=== PATIENT | female | born 1940 | race Caucasian/White ===

== ENCOUNTER 2021-06-03 08:02 | Day surgery (SDC) | payer MEDICARE ==
[2021-05-28 14:29] LABS: BASOPHILS % (AUTO) 0.5 % (0-1); EOSINOPHILS # (AUTO) 0.1 X10'3 (0-0.9); LYMPHOCYTES # (AUTO) 1.1 X10'3 (1.1-4.8); MEAN PLATELET VOLUME 10.2 FL (7.4-10.4); MONOCYTES # (AUTO) 0.5 X10'3 (0-0.9)
[2021-05-28 14:30] LABS: ALBUMIN 3.8 G/DL (3.4-5.0); ALKALINE PHOSPHATASE 57 IU/L (46-116); BLOOD UREA NITROGEN 36 MG/DL (7-18); BUN/CREATININE RATIO 12.7 (6.6-38.0); CALCIUM 8.4 MG/DL (8.5-10.1); CHLORIDE 104 MMOL/L (99-107); CREATININE 2.84 MG/DL (0.40-0.90); PRE OP ALT 19 U/L (30-65); PRE OP ANION GAP 14 (8-16); PRE OP AST 14 U/L (10-37); PRE OP BILIRUB, TOTAL 0.3 MG/DL (0.0-1.0); PRE OP GLUCOSE 100 MG/DL (70-104); PRE OP SODIUM 138 MMOL/L (135-145); TOTAL CARBON DIOXIDE 20.2 MMOL/L (24-32); TOTAL PROTEIN 7.7 G/DL (6.4-8.2); eGFR 16 ML/MIN
[2021-05-28 14:31] LABS: EOSINOPHILS % (AUTO) 1.4 % (0-6); LYMPHOCYTES % (AUTO) 15.8 % (21-51); MEAN CORPUSCULAR HEMOGLOBIN 27.9 PG (27.0-31.0); MEAN CORPUSCULAR HGB CONC 32.6 g/dL (33.0-36.5); MEAN CORPUSCULAR VOLUME 85.7 FL (78-98); MONOCYTES % (AUTO) 7.3 % (2-12); NEUTROPHILS # (AUTO) 5.4 X10'3 (1.8-7.7); PRE OP HEMATOCRIT 38.7 % (35.0-45.0); PRE OP HEMOGLOBIN 12.6 g/dL (12.0-16.0); PRE OP PLATELET COUNT 206 X10'3 (140-440); RED BLOOD COUNT 4.51 X10'6 (4.20-5.60); RED CELL DISTRIBUTION WIDTH 15.6 % (11.5-14.5)
[2021-05-28 15:26] LABS: ELLIPTOCYTES FEW; PLATELET ESTIMATE NORMAL
[2021-05-28 15:27] LABS: LARGE PLATELETS FEW
[~2021-06-03] VITALS: Ht 162.6 cm; Wt 54.4 kg
[2021-06-03] VITALS (10 sets, daily range): BP systolic 128–157; BP diastolic 68–84
[~2021-06-03 08:02] MED LIST: ALLO100T25 PO; ALPR-623 PO; AMLO5TAB PO; ATEN25TA PO; CLON-529 PO; DOCUMENT DATE & TIME OF BETA-BLOCKER PO ONE; ceFAZolin 2gm in dextrose, iso 50 ML IV ONE; famotidine 20mg tablet PO ONE; ringers solution, lacted 1,000 ML IV SCH
[2021-06-03] MEDS ORDERED: BUPIVAcaine/PF 2.5 mg/ml (0.25%) 30ml vial ONE ×2 (09:46→09:59)
[2021-06-03] MEDS ORDERED: LIDOcaine 1% 30ml preserv. free vial ONE ×2 (09:46→09:59)
[2021-06-03] MEDS ORDERED: labetalol 20mg/4ml (5mg/ml) syringe IV PRN (10:00)
[2021-06-03] MEDS ORDERED: hydrALAZINE 20mg/ml inj. IV PRN (10:00)
[2021-06-03] MEDS ORDERED: fentaNYL/PF 50MCG/1 ML 2ML syringe IV PRN ×2 (10:00)
[2021-06-03] MEDS ORDERED: ringers solution, lacted 1,000 ML IV SCH (10:00)
[2021-06-03] MEDS ORDERED: morphine 4 MG/ML inj SYRINge IV PRN (10:00)
[2021-06-03] MEDS ORDERED: morphine 2 MG/ML inj. syringe IV PRN (10:00)
[2021-06-03] MEDS ORDERED: ondansetron/PF 4mg/2ml inj IV PRN (10:00)
[2021-06-03] MEDS ORDERED: glycopyrrolate 0.2mg/ml inj ONE (10:23)
[2021-06-03] MEDS ORDERED: dexamethasone sod phosphate 10mg/ml inj ONE (10:23)
[2021-06-03] MEDS ORDERED: neostigmine methylsulfate 1 MG/ML 10ml vial ONE (10:23)
[2021-06-03] MEDS ORDERED: sevoflurane 250ml liquid IH ONE (10:23)
[2021-06-03] MEDS ORDERED: rocuronium 10mg/ml inj IV ONE (10:33)
[2021-06-03] MEDS ORDERED: fentaNYL/PF 50MCG/1 ML 2ML syringe ONE (10:33)
[2021-06-03] MEDS ORDERED: midazolam 1 mg/ML 2ml injection ONE (10:33)
[2021-06-03] MEDS ORDERED: propofol inj 20 ML IV ONE (10:34)
[2021-06-03] MEDS ORDERED: LIDOcaine 2% (20mg/ml) 5ml vial ONE (10:34)
[2021-06-03] MEDS ORDERED: ondansetron/PF 4mg/2ml inj ONE (10:37)
--- NOTE | 2021-06-03 11:42 | NUR ---
Received from OR via , accompanied by Anesthesiologist DR LEIVA and report given by Anesthesiolgist. PT PRESENTS WITH 20G RIGHT HAND, ABD DRESSING DRY AND INTACT. VSS Addendum: 06/03/21 at 1157 by Yessi Marshall RN, RN Amended: Links added.
[2021-06-03] MEDS ORDERED: HYDROcodone/acetaminophen 5mg/325mg tablet PO PRN (11:50)
--- NOTE | 2021-06-03 13:02 | NUR ---
DC INSTURCTIONS REVIEWED WITH PT, PT VERBALIZED UNDERSTANDING WITH NO FURTHER QUESTIONS AT THIS TIME. PT WHEELED OUT TO DAUGHTER'S PRIVATE VEHIVLE. VSS. Addendum: 06/03/21 at 1314 by Yessi Marshall RN, RN Amended: Links added.
== END 2021-06-03 13:02 | disposition home or self-care (01) ==
LOC: PAS 08:02
PROVIDERS: ATTEND Surgery
DX: K41.30 Unilateral femoral hernia, with obstruction, without gangrene, not specified as recurrent (principal); N73.6 Female pelvic peritoneal adhesions (postinfective); F41.9 Anxiety disorder, unspecified; I12.9 Hypertensive chronic kidney disease with stage 1 through stage 4 chronic kidney disease, or unspecified chronic kidney disease; N18.4 Chronic kidney disease, stage 4 (severe); Z79.899 Other long term (current) drug therapy; Z20.822 Contact with and (suspected) exposure to COVID-19; Z98.1 Arthrodesis status; Z90.710 Acquired absence of both cervix and uterus; Z98.890 Other specified postprocedural states; Z87.891 Personal history of nicotine dependence; Z72.89 Other problems related to lifestyle
CPT/HCPCS: 36415; 49659; 80053; 82948; 85025; 93005; C1781; J2001; J2250; J2405; J2704; J3010; J3490; U0003; U0005; Z7506; Z7508; Z7512; 85008; A4215; A4618; J1100; J2710; J7120

== ENCOUNTER 2022-03-05 11:10 | Day surgery (SDC) | payer MEDICARE ==
[2022-03-02 15:51] LABS: BASOPHILS % (AUTO) 0.4 % (0-1); EOSINOPHILS # (AUTO) 0.1 X10'3 (0-0.9); EOSINOPHILS % (AUTO) 1.4 % (0-6); LYMPHOCYTES # (AUTO) 1.1 X10'3 (1.1-4.8); LYMPHOCYTES % (AUTO) 10.4 % (21-51); MEAN CORPUSCULAR HEMOGLOBIN 27.2 PG (27.0-31.0); MEAN CORPUSCULAR HGB CONC 32.5 g/dL (33.0-36.5); MEAN CORPUSCULAR VOLUME 83.5 FL (78-98); MEAN PLATELET VOLUME 10.4 FL (7.4-10.4); MONOCYTES % (AUTO) 9.2 % (2-12); NEUTROPHILS # (AUTO) 8.5 X10'3 (1.8-7.7); NEUTROPHILS % (AUTO) 78.6 % (42-75); PRE OP HEMATOCRIT 35.4 % (35.0-45.0); PRE OP HEMOGLOBIN 11.5 g/dL (12.0-16.0); PRE OP PLATELET COUNT 241 X10'3 (140-440); RED BLOOD COUNT 4.24 X10'6 (4.20-5.60)
[2022-03-02 16:08] LABS: ALBUMIN 3.6 G/DL (3.4-5.0); ALKALINE PHOSPHATASE 60 IU/L (46-116); BLOOD UREA NITROGEN 54 MG/DL (7-18); BUN/CREATININE RATIO 11.1 (6.6-38.0); CHLORIDE 98 MMOL/L (99-107); CREATININE 4.88 MG/DL (0.40-0.90); PRE OP ALT 15 U/L (30-65); PRE OP ANION GAP 14 (8-16); PRE OP AST 21 U/L (10-37); PRE OP BILIRUB, TOTAL 0.4 MG/DL (0.0-1.0); PRE OP GLUCOSE 113 MG/DL (70-104); PRE OP POTASSIUM 4.1 MMOL/L (3.4-5.1); PRE OP SODIUM 134 MMOL/L (135-145); TOTAL CARBON DIOXIDE 21.7 MMOL/L (24-32); TOTAL PROTEIN 7.3 G/DL (6.4-8.2); eGFR 9 ML/MIN
[~2022-03-05] VITALS: Ht 162.6 cm; Wt 53.5 kg
[~2022-03-05 11:10] MED LIST changes: +LOSA25TA41 PO; +ROSU10TA28 PO; -ceFAZolin 2gm in dextrose, iso 50 ML IV ONE; +ceFAZolin inj. 2,000 MG in dextrose 5%-water 100 ML IV ONE; +meperidine/PF 25mg/ml syringe IV PRN; +morphine 2 MG/ML inj. syringe IV PRN; +morphine 4 MG/ML inj SYRINge IV PRN; +normal saline 1000ml 1,000 ML IV SCH; +ondansetron/PF 4mg/2ml inj IV PRN; +proCHLORperazine 10 MG/2 ml inj IV PRN
[2022-03-05 11:20] VITALS: BP 151/79
[2022-03-05 12:13] LABS: ISTAT CREATININE 5.3 mg/dL (0.6-1.1); ISTAT HGB 10.9 g/dl (12.0-16.0); ISTAT IONIZED CALCIUM 1.08 mmol/L (1.03-1.32); POC BUN/CREATININE RATIO 9.6 (6.6-38.0)
[2022-03-05 12:28] LABS: ALBUMIN/GLOBULIN RATIO 0.9 (1.1-1.5); ALKALINE PHOSPHATASE 54 IU/L (46-116); BLOOD UREA NITROGEN 59 MG/DL (7-18); BUN/CREATININE RATIO 11.9 (6.6-38.0); CHLORIDE 98 MMOL/L (99-107); CREATININE 4.97 MG/DL (0.40-0.90); PRE OP ALT 19 U/L (30-65); PRE OP ANION GAP 15 (8-16); PRE OP AST 19 U/L (10-37); PRE OP BILIRUB, TOTAL 0.4 MG/DL (0.0-1.0); PRE OP GLUCOSE 104 MG/DL (70-104); PRE OP POTASSIUM 4.1 MMOL/L (3.4-5.1); PRE OP SODIUM 132 MMOL/L (135-145); TOTAL CARBON DIOXIDE 19.1 MMOL/L (24-32); TOTAL PROTEIN 6.2 G/DL (6.4-8.2); eGFR 8 ML/MIN
[2022-03-05] MEDS ORDERED: BUPIVAcaine/PF 2.5 mg/ml (0.25%) 30ml vial ONE (12:30)
[2022-03-05] MEDS ORDERED: LIDOcaine 1% 30ml preserv. free vial ONE (12:31)
[2022-03-05] MEDS ORDERED: fentaNYL/PF 50MCG/1 ML 2ML syringe ONE (12:59)
[2022-03-05] MEDS ORDERED: MIDAZolam 1 MG/ML 5ML VIAL ONE (12:59)
[2022-03-05] MEDS ORDERED: LIDOcaine 2% (20mg/ml) 5ml vial ONE (13:40)
[2022-03-05] MEDS ORDERED: propofol inj 20 ML IV ONE (13:40)
[2022-03-05 13:49] VITALS: BP 135/72
--- NOTE | 2022-03-05 13:49 | NUR ---
Received from OR via [facility] IN STABLE CONDITION , accompanied by DANCE INSTRUCTOR AND Anesthesiologist and report given by OR AND Anesthesiolgist. Addendum: 03/05/22 at 1425 by Siena Bañuelos RN Amended: Links added.
[2022-03-05 14:00] VITALS: BP 140/65
[2022-03-05] MEDS ORDERED: oxyCODONE/APAP 5-325mg tablet PO PRN (14:00)
[2022-03-05 14:10] VITALS: BP 130/67
[2022-03-05 14:20] VITALS: BP 131/69
--- NOTE | 2022-03-05 14:49 | NUR ---
PATIENT DISCHARGED FROM PACU IN STABLE CONDITION AFTER WRITTEN AND VERBAL DISCHARGE INSTRUCTIONS GIVEN. PATIENT GAVE VERBAL UNDERSTANDING OF INSTRUCTIONS GIVEN. PATIENT LEFT FACILITY VIA WHEELCHAIR WITH RN. Addendum: 03/05/22 at 1502 by Siena Bañuelos RN Amended: Links added.
[2022-03-13] MEDS ORDERED: PER5325T PO (18:42)
[2022-03-13] MEDS ORDERED: CLON0.1T PO (19:17)
[2022-03-13] MEDS ORDERED: ROSU10TA2 PO (19:17)
[2022-03-13] MEDS ORDERED: AMLO5TAB16 PO (19:17)
[2022-03-13] MEDS ORDERED: LOSA25TA41 PO (19:17)
[2022-03-13] MEDS ORDERED: ALPR-149 PO (19:17)
[2022-03-13] MEDS ORDERED: ATEN25TA PO (19:18)
[2022-03-16] MEDS ORDERED: Lorazepam PO (10:43)
[2022-03-16] MEDS ORDERED: ONDA4TAB12 PO (10:51)
== END 2022-03-05 14:49 | disposition home or self-care (01) ==
LOC: PAS 11:10
PROVIDERS: ATTEND Surgery
DX: D49.2 Neoplasm of unspecified behavior of bone, soft tissue, and skin (principal); R19.09 Other intra-abdominal and pelvic swelling, mass and lump; Z79.899 Other long term (current) drug therapy; Z98.890 Other specified postprocedural states; Z98.51 Tubal ligation status; Z90.710 Acquired absence of both cervix and uterus; N18.4 Chronic kidney disease, stage 4 (severe); F41.9 Anxiety disorder, unspecified; I12.9 Hypertensive chronic kidney disease with stage 1 through stage 4 chronic kidney disease, or unspecified chronic kidney disease; Z72.89 Other problems related to lifestyle
CPT/HCPCS: 22903; 36415; 80047; 80053; 82948; 85025; 87811; 88341; 88342; 93005; J0690; J2250; J2704; J3010; J3490; J7030; J7040; J7060; J7120; Z7506; Z7512; 88307; A4215; A4615; A4618; A7000